=== PATIENT | male | born 1940 | race Caucasian/White ===

== ENCOUNTER 2019-09-02 17:43 | Observation (INO) ==
[2019-09-02] MEDS: Ipratropium/Albuterol Neb 3 ML IH SCH ×2 (18:21→21:24)
[2019-09-02] MEDS ORDERED: methylPREDNISolone 125 MG/2 ML VIAL IVP STA (18:40)
[2019-09-02 18:42] LABS: VBG HCO3 34 mEq/L (21-27); VBG PCO2 57 mmHg (41-51); VBG PH 7.38 pH Units (7.32-7.42); VBG PO2 46 mmHg (25-50)
[2019-09-02 18:46] LABS: Hemoglobin 10.5 g/dL (12.9-16.9); Immature Granulocytes % 0.8 % (0-4); Immature Platelets 8.4 % (1.1-6.1); Mean Corpuscular HGB Conc 30.3 g/dL (31.6-35.5)
[2019-09-02 18:55] LABS: Alanine Aminotransferase 9 Units/L (7-52); Albumin 3.3 g/dL (3.5-5.7); Albumin/Globulin Ratio 0.9 (1.1-2.2); Alkaline Phosphatase 73 Units/L (34-104); Aspartate Amino Transferase 16 Units/L (13-39); BUN/Creatinine Ratio 17 (6-26); Bilirubin,Total 0.3 mg/dL (0.3-1.0); Blood Urea Nitrogen 13 mg/dL (8-23); Calcium 8.7 mg/dL (8.6-10.3); Carbon Dioxide 32 mEq/L (23-29); Chloride 101 mEq/L (98-107); Globulin 3.7 g/dL (2.4-3.5); Glucose 109 mg/dL (70-105); Osmolality,Calculated 293 (280-300); Potassium 3.6 mEq/L (3.5-5.1); Sodium 141 mEq/L (136-145); eGFR For African Americans > 60 (> 60); eGFR For Non-African Americans > 60 (> 60)
[2019-09-02 19:10] LABS: Basophils # 0.1 K/mcL (0.0-0.2); Basophils % 0.6 %; Eosinophils # 0.2 K/mcL (0.0-0.6); Eosinophils % 2.7 %; Hematocrit 34.6 % (37.5-50.1); Lymphocytes # 2.1 K/mcL (0.6-4.6); Lymphocytes % 24.7 %; Mean Corpuscular Volume 75.7 fL (83.0-100.0); Mean Platelet Volume 10.9 fL (9.4-12.4); Monocytes % 11.5 %; Platelet Count 241 K/mcL (140-400); Red Blood Count 4.57 M/mcL (4.19-5.50); Red Cell Distribution Width 17.7 % (11.5-14.5); Segmented Neutrophils % 59.7 %; White Blood Count 8.4 K/mcL (4.3-11.1)
[2019-09-02 19:12] LABS: Platelet Estimate Normal (Normal)
[2019-09-02] MEDS ORDERED: Azithromycin 500 MG in D5% in Water 250 ML IVPB ONE (20:20)
[2019-09-02 20:58] LABS: Troponin I 0.03 ng/mL (< 0.04)
[2019-09-02] MEDS ORDERED: Naloxone 0.4 MG/ML INJ IVP PRN (21:34)
[2019-09-02] MEDS ORDERED: Ipratropium/Albuterol Neb 3 ML IH PRN (21:40)
[2019-09-02] MEDS ORDERED: Benzonatate 100 MG CAPSULE PO PRN (23:37)
[2019-09-03 05:33] LABS: Bilirubin,Urine Negative (Negative); Blood,Urine Moderate (Negative); Clarity,Urine Clear (Clear); Color,Urine Yellow (Yellow); Glucose,Urine (UA) 250 mg/dL (Normal); Ketones,Urine Trace mg/dL (Negative); Leukocyte Esterase,Urine Negative (Negative); Nitrite,Urine Negative (Negative); Protein,Urine 30 mg/dL (Neg-Trace); Specific Gravity,Urine 1.024 (1.010-1.025); Urobilinogen,Urine Normal (Normal)
[2019-09-03 05:36] LABS: Bacteria,Urine None Seen per hpf (None-Few); Hyaline Casts,Urine Few per lpf (None-Few); RBC,Urine 50-100 per hpf (0-3); Squamous Epithelial Cell,Urine Many per lpf (None-Few); WBC,Urine 0-3 per hpf (0-3)
[2019-09-03 06:17] LABS: Hemoglobin 10.1 g/dL (12.9-16.9); Mean Corpuscular Volume 74.5 fL (83.0-100.0)
[2019-09-03 06:19] LABS: Basophils % 0.3 %; Immature Granulocytes % 0.9 % (0-4); Lymphocytes # 0.3 K/mcL (0.6-4.6); Lymphocytes % 8.8 %; Mean Corpuscular HGB Conc 30.6 g/dL (31.6-35.5); Mean Corpuscular Hemoglobin 22.8 pg (28.0-33.3); Mean Platelet Volume 12.4 fL (9.4-12.4); Monocytes % 1.1 %; Neutrophils # 3.1 K/mcL (1.6-8.9); Platelet Count 218 K/mcL (140-400); Red Blood Count 4.43 M/mcL (4.19-5.50); Red Cell Distribution Width 17.6 % (11.5-14.5); Segmented Neutrophils % 88.9 %; White Blood Count 3.5 K/mcL (4.3-11.1)
[2019-09-03 06:38] LABS: BUN/Creatinine Ratio 19 (6-26); Blood Urea Nitrogen 14 mg/dL (8-23); Calcium 8.9 mg/dL (8.6-10.3); Carbon Dioxide 32 mEq/L (23-29); Chloride 99 mEq/L (98-107); Glucose 159 mg/dL (70-105); Osmolality,Calculated 298 (280-300); Potassium 4.1 mEq/L (3.5-5.1); Sodium 142 mEq/L (136-145); eGFR For African Americans > 60 (> 60); eGFR For Non-African Americans > 60 (> 60)
[2019-09-03] MEDS ORDERED: MethylPREDNISolone 40 MG/ML VIAL IVP SCH (09:00)
[2019-09-03] MEDS: Ipratropium/Albuterol Neb 3 ML IH SCH ×2 (15:34→22:54)
[2019-09-04] MEDS: Ipratropium/Albuterol Neb 3 ML IH SCH ×2 (04:49→09:30)
[2019-09-04 07:27] VITALS: BP 151/63
[2019-09-04] MEDS ORDERED: predniSONE 20 MG TABLET PO SCH (09:00)
[2019-09-04 13:43] LABS: Basophils % 0.1 %; Hematocrit 36.2 % (37.5-50.1); Hemoglobin 10.6 g/dL (12.9-16.9); Immature Granulocytes % 0.6 % (0-4); Lymphocytes # 0.2 K/mcL (0.6-4.6); Mean Corpuscular HGB Conc 29.3 g/dL (31.6-35.5); Mean Corpuscular Hemoglobin 22.9 pg (28.0-33.3); Mean Corpuscular Volume 78.2 fL (83.0-100.0); Mean Platelet Volume 11.3 fL (9.4-12.4); Monocytes # 0.2 K/mcL (0.0-1.3); Monocytes % 1.5 %; Platelet Count 302 K/mcL (140-400); Red Blood Count 4.63 M/mcL (4.19-5.50); Red Cell Distribution Width 17.7 % (11.5-14.5); Segmented Neutrophils % 95.8 %
[2019-09-04 13:45] LABS: White Blood Count 10.4 K/mcL (4.3-11.1)
[2019-09-04 14:01] LABS: BUN/Creatinine Ratio 27 (6-26); Blood Urea Nitrogen 28 mg/dL (8-23); Calcium 9.5 mg/dL (8.6-10.3); Carbon Dioxide 34 mEq/L (23-29); Chloride 99 mEq/L (98-107); Glucose 167 mg/dL (70-105); Osmolality,Calculated 301 (280-300); Potassium 4.1 mEq/L (3.5-5.1); Sodium 141 mEq/L (136-145); eGFR For African Americans > 60 (> 60); eGFR For Non-African Americans > 60 (> 60)
== END 2019-09-04 14:04 | disposition home or self-care (01) ==
LOC: EMEROOARM 17:43 → 3BNU 17:43
PROVIDERS: ADMIT Internal Medicine; ATTEND Internal Medicine